=== PATIENT | male | born 1955 | race Caucasian/White ===

== ENCOUNTER → 2016-11-25 | Outpatient (CLI) | payer BC, OTHER ==
[2016-11-25 13:44] LABS: ESTIMATED AVERAGE GLUCOSE 163 mg/dl; HA1C FLAG Normal (Normal)
[2016-11-25 14:00] LABS: RATIO 27.6 mcg/mg (0-30.0)
[2016-11-25 14:02] LABS: BLOOD UREA NITROGEN 14 mg/dl (7-18); BUN/CREATININE RATIO 12.6 (10-20); CALCIUM 9.5 mg/dl (8.5-10.1); CARBON DIOXIDE 26 mmol/L (21-32); CHLORIDE 108 mmol/L (98-107); GLUCOSE 129 mg/dl (70-99); POTASSIUM 4.3 mmol/L (3.5-5.1); SODIUM 143 mmol/L (136-145)
== END | disposition home or self-care (01) ==
LOC: C.LABMFLN 17:25
PROVIDERS: ATTEND Family Medicine
DX: E11.29 Type 2 diabetes mellitus with other diabetic kidney complication (principal); I10 Essential (primary) hypertension

== ENCOUNTER → 2016-12-19 | Outpatient (CLI) | payer BC ==
[2016-12-19 13:43] LABS: BLOOD UREA NITROGEN 15 mg/dl (7-18)
== END | disposition home or self-care (01) ==
LOC: C.LABMFLN 08:41
PROVIDERS: ATTEND Physician Assistant
DX: H90.5 Unspecified sensorineural hearing loss (principal)

== ENCOUNTER → 2016-12-30 | Outpatient (CLI) | payer BC ==
[~2016-12-30] MED LIST: GADAVIST IV PRN
--- NOTE | 2016-12-30 11:25 | DIAGNOSTIC IMAGING REPORT ---
MRI OF THE BRAIN COMBO INTERNAL AUDITORY CANAL PROTOCOL CLINICAL HISTORY: Hearing loss. Cerumen impaction. COMPARISON STUDY: No priors. TECHNIQUE: MRI of the brain was performed utilizing various T1 and T2-weighted sequences in the axial, sagittal, and coronal planes. Contrast-enhanced sequences were acquired following the administration of 9 cc of Gadavist. Additional high-resolution imaging was performed through the skull base both pre and post contrast to assess the internal auditory canals. FINDINGS: Brain parenchyma: There is mild subcortical and periventricular microangiopathic change. There is no hemorrhage or mass effect. There is no restricted diffusion to suggest acute ischemia. No enhancing mass lesion is identified on the postcontrast images. Barnett-white matter differentiation is preserved. No extra-axial fluid collection is seen. The cerebellar tonsils are normal in configuration. Ventricles, sulci, and cisterns: Normal in configuration. Internal auditory canals: There is no enhancing mass lesion identified in the cerebellopontine angle. No mass or abnormal enhancement is seen along the course of the interlobular canal bilaterally. The middle ear structures are normal as visualized. Pituitary and sella: Unremarkable. Intracranial vasculature: Normal flow voids are maintained at the skull base. Orbits: The bony orbits are grossly intact. Orbital contents are normal in appearance. Sinuses and mastoids: There is a large left mastoid effusion. Trace right mastoid effusion is observed. There is mucosal thickening and trace fluid in the left maxillary antrum. Mild mucosal thickening is also seen in the ethmoid and frontal sinuses. Calvarium: Unremarkable. Cervical cord: Partially visualized cervical spinal cord is normal in morphology and signal intensity. IMPRESSION: 1. No acute intracranial abnormality. 2. Unremarkable MRI assessment of the internal artery canals. 3. Large left mastoid effusion. Electronically signed by: Fly Beal M.D. 12/30/2016 11:23 AM Dictated Date/Time: 12/30/2016 11:14 AM
== END | disposition home or self-care (01) ==
LOC: C.MRI 09:44
PROVIDERS: ATTEND Physician Assistant
DX: H61.20 Impacted cerumen, unspecified ear (principal)

== ENCOUNTER 2018-12-18 07:01 | Inpatient (IN) ==
--- NOTE | 2018-12-10 10:47 | Anesthesiology Consultation ---
Date of Service December 10, 2018 Assessment & Plan (1) Encounter for pre-operative examination: - S/P Prostate biopsy: 11/05/18: MAC sedation at [facility] - Check BSG AM DOS Chart Review Chart Review: Acceptable Risk for Surgery and Patient NOT seen in Pre Admission Testing History Surgery Operation Date: 12/18/18 09:05 Proposed Procedures p Left Video Assisted Thoracoscopy with Lower Lobe Wedge Resection - Jordan Mora MD, FACS Height/Weight Height: 5 ft 10 in Weight: 83.461 kg Allergies Allergy/AdvReac Type Severity Reaction Status Date / Time No Known Drug Allergies Allergy Verified 12/08/18 17:58 garlic AdvReac Gastrointestinal Verified 12/08/18 17:58 Upset Medications Home Medications Medication Instructions Recorded Confirmed Last Taken cholecalciferol (vitamin D3) 1,000 unit PO QAM 10/21/18 12/08/18 11/02/18 [Vitamin D3] glimepiride 4 mg PO BID 10/21/18 12/08/18 11/04/18 20:00 loratadine 10 mg PO QAM 10/21/18 12/08/18 Unknown metformin 1,000 mg PO BID 10/21/18 12/08/18 11/04/18 08:00 metoprolol succinate 25 mg PO QAM 10/21/18 12/08/18 11/05/18 08:00 atorvastatin 10 mg PO QAM 12/08/18 12/08/18 Unknown Past Medical History Medical History Diabetes mellitus, type 2 NIDDM HTN (hypertension) 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 Hyperlipidemia Osteoarthritis Prostate cancer UROLOGY MONITORING- POSSIBLE PROSTATECTOMY IN FUTURE PENDING LUNG WORKUP Pulmonary nodule Past Family History Family History Son Family history of diabetes mellitus Brother FHx: prostate cancer Past Surgical History Surgical History History of arthroscopy RIGHT KNEE History of colonoscopy HISTORY OF POLYPS Social History Smoking Status: Never smoker Do You Dip or Chew Tobacco: No Hx Alcohol Use: No Hx Substance Use: No substance use type: does not use Testing Laboratory Results 10/27/18 WBC 8.75 H/H 14.5/42.8 PLATELETS 190 SODIUM 139 POTASSIUM 4.1 CHLORIDE 107 CO2 27 BUN 16 CREATININE 0.98 GLUCOSE 103 HGBA1C 7.5% UA negative Electrocardiogram Date: 10/27/18 Findings: + NSR @ (72) Other Testing Chest CT: 11/02/18: There are dependent atelectatic changes. There is a solid 16 mm irregular marginated left lower lobe pulmonary nodule abutting the fissure. This should be presumed neoplastic until proven otherwise. Also evident is a 5 mm solid right middle lobe pulmonary nodule abutting the fissure. There are scattered right lung low suspicion perifissural nodules. There are coronary artery calcifications. Mild hepatic steatosis. There are small posterior gastric diverticulum.
[~2018-12-18 07:01] MED LIST changes: -GADAVIST IV PRN; +LR 15ML/HR IV SCH
[2018-12-18] MEDS ORDERED: fentaNYL citrate 100 MCG/2 ML VIAL ONE (09:23)
[2018-12-18] MEDS ORDERED: MIDAZOLAM HCL 1 MG/ML 2ML VIAL ONE (09:23)
[2018-12-18] MEDS ORDERED: BUPIVACAINE 0.5 % 5 MG/1 ML MPF 30ML VIAL ONE (09:41)
[2018-12-18] MEDS ORDERED: SODIUM CHLORIDE 0.9% PF 50 ML VIAL ONE (09:42)
[2018-12-18] MEDS ORDERED: BUPIVACAINE LIPOSOME 1.3% 266 MG/20 ML VIAL ONE (09:42)
[2018-12-18] MEDS ORDERED: CEFAZOLIN 2,000 MG/15 ML IV PUSH IV ONE (10:04)
--- NOTE | 2018-12-18 10:06 | History & Physical Bridge Note ---
Date of Service December 18, 2018 History & Physical Bridge Note I have examined the patient, reviewed the History & Physical and in the interval since the performance of the History & Physical I have noted the following changes of clinical significance: no changes noted
[2018-12-18] MEDS ORDERED: LIDOCAINE HCL 2% 2 ML VIAL/AMP(20MG/ML) INFIL ONE (10:56)
[2018-12-18] MEDS ORDERED: NEOSTIGMINE METHYLSULFATE 5 MG/5 ML SYR ONE (10:56)
[2018-12-18] MEDS ORDERED: PROPOFOL IV EMULSION 10 MG/ML 20 ML VIAL IV ONE (10:56)
[2018-12-18] MEDS ORDERED: ONDANSETRON INJ 2 MG/ML 2 ML VIAL ONE (10:56)
[2018-12-18] MEDS ORDERED: ROCURONIUM BROMIDE 10 MG/ML 5 ML VIAL ONE (10:56)
[2018-12-18] MEDS ORDERED: GLYCOPYRROLATE 0.2 MG/ML VIAL ONE (10:56)
--- NOTE | 2018-12-18 11:09 | Post Operative Brief Note ---
Immediate Post Op Note v1 Date of Surgery December 18, 2018 Pre & Post Diagnosis Operation Date: 12/18/18 08:45 Pre-Op Diagnosis: Left Lung Nodule Post-Op Diagnosis: Left Lung Nodule Procedure Operation Date: 12/18/18 08:45 Actual Procedures p Left Video Assisted Thoracoscopy with Lower Lobe Wedge Resection(Left) - Jordan Mora MD, FACS Surgeon Jordan Mora MD, FACS Clerical Administrative Assistant Odilon ROBIN Estimated Blood Loss 5 Findings Consistent with Post-Op Diagnosis Drains Chest Tube
[2018-12-18] MEDS ORDERED: ePHEDrine sulfate 50 MG/ML SYR ONE (11:21)
[2018-12-18] MEDS ORDERED: PROMETHAZINE HCL 12.5 MG in SODIUM CHLORIDE 0.9% 50 ML IV PRN (11:27)
[2018-12-18] MEDS ORDERED: ePHEDrine sulfate 50 MG/ML AMP IV PRN (11:27)
[2018-12-18] MEDS ORDERED: FLUMAZENIL 0.1 MG/1 ML 10 ML VIAL IV PRN (11:27)
[2018-12-18] MEDS ORDERED: LABETALOL HCL IV 5 MG/ML 20ML IV PRN (11:27)
[2018-12-18] MEDS ORDERED: ONDANSETRON INJ 2 MG/ML 2 ML VIAL IV PRN ×2 (11:27→13:13)
[2018-12-18] MEDS ORDERED: ATROPINE SULFATE 0.1 MG/ML 10ML SYR IV PRN (11:27)
[2018-12-18] MEDS ORDERED: HYDROmorphone INJ 1 MG/ML SYRINGE IV PRN (11:27)
[2018-12-18] MEDS ORDERED: NALOXONE HCL 0.4 MG/1 ML VIAL/CARP IV PRN (11:27)
[2018-12-18] MEDS ORDERED: HYDROmorphone INJ 1 MG/ML SYRINGE ONE (12:11)
[2018-12-18] MEDS ORDERED: METOCLOPRAMIDE HCL INJ 5 MG/ML 2 ML VIAL ONE (12:34)
[2018-12-18] MEDS ORDERED: METOCLOPRAMIDE HCL INJ 5 MG/ML 2 ML VIAL IV STA (12:40)
--- NOTE | 2018-12-18 13:06 | Anesthesiology Progress Note ---
Date of Service December 18, 2018 Anesthesia Post Procedure Vital Signs Vital Signs: Temp Pulse Pulse Resp BP BP Pulse Ox 12/18/18 13:00 51 L 12 135/75 12/18/18 12:50 36.5 C 54 L 13 124/74 12/18/18 12:40 55 L 18 126/76 12/18/18 12:30 57 L 11 L 124/78 12/18/18 12:20 36.5 C 56 L 19 128/78 12/18/18 12:10 55 L 18 133/80 12/18/18 12:00 65 13 130/83 12/18/18 11:50 70 22 135/82 12/18/18 11:40 62 13 127/80 12/18/18 11:30 36.6 C 76 23 140/86 12/18/18 07:43 36.3 C L 78 18 172/88 H 94 Pain Intensity Left Lateral Chest: Pain Intensity: 3 Transfer of Care Handoff Completed per policy Notes Mental Status: alert / awake / arousable Patient Amnestic to Procedure: Yes Nausea / Vomiting: adequately controlled Pain: adequately controlled Airway Patency, RR, SpO2: stable & adequate BP & HR: stable & adequate Hydration State: stable & adequate Anesthetic Complications: no major complications apparent
[2018-12-18] MEDS ORDERED: OXYCODONE/ACETAMINOPHEN 5mg/325mg TAB PO PRN (13:13)
[2018-12-18] MEDS ORDERED: MoRPHine SULFATE 2 MG/ML CARP IV PRN (13:13)
[2018-12-18] MEDS: METOCLOPRAMIDE HCL INJ 5 MG/ML 2 ML VIAL IV SCH ×2 (14:28→21:56)
[2018-12-18] MEDS: KETOROLAC TROMETHAMINE 15 MG/ML VIAL IV SCH ×2 (14:28→21:57)
[2018-12-18] MEDS ORDERED: LIDOCAINE 2% JELLY 5 ML TUBE EXT ONE (15:58)
[2018-12-18] MEDS ORDERED: TAMSULOSIN HCL 0.4 MG CAP PO ONE (17:24)
[2018-12-18] MEDS: GLIMEPIRIDE 2 MG TAB PO SCH (17:57)
[2018-12-18] MEDS: METFORMIN HCL 500 MG TAB PO SCH (17:57)
--- NOTE | 2018-12-18 21:04 | Urology Consultation ---
Date of Consultation December 18, 2018 Assessment & Plan (1) Acute urinary retention: (2) Prostate cancer: History of Present Illness Attending Physician: Jordan Mora MD, FACS History of Present Illness Patient POD0 after wedge resection for lung mass. Follows with Dr. 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 Plan was to have results of lung prior to definitive plan for prostate cancer. Has significant LUTS over last 4 months. Just prior to chest surgery going every 1-2 hours and 2-5 x per night. No medications. Post op had mild leaking through day. No good voids. Scanned around 6pm for approx 400. Attempted straight cath had small amount of urine and small clots. Was then voiding small amounts and incontinent. Flomax trialed and patient had small voids. Never fully able to empty. Repeat scan now 550. patient having worsening distension in last 20-60 mins. No severe pain. Pressure. Increased leaking. Discomfort in groin. No severe issue. 18 Fr Coude was placed by myself and approx 600cc of urine immediately drained. Burning after catheter but improved pressure and discomfort. Allergies Allergy/AdvReac Type Severity Reaction Status Date / Time No Known Drug Allergies Allergy Verified 12/08/18 17:58 garlic AdvReac Gastrointestinal Verified 12/08/18 17:58 Upset Home Medications Home Medications Medication Instructions Recorded Confirmed Type cholecalciferol (vitamin D3) 1,000 unit PO QAM 10/21/18 12/18/18 History [Vitamin D3] glimepiride 4 mg PO BID 10/21/18 12/18/18 History loratadine 10 mg PO QAM 10/21/18 12/18/18 History metformin 1,000 mg PO BID 10/21/18 12/18/18 History atorvastatin 10 mg tablet 10 mg PO QAM #90 tab 12/14/18 12/18/18 Rx metoprolol succinate ER 25 mg 25 mg PO DAILY #90 ea 12/14/18 12/18/18 Rx capsule sprinkle, ext. 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 Hyperlipidemia Osteoarthritis Prostate cancer UROLOGY MONITORING- POSSIBLE PROSTATECTOMY IN FUTURE PENDING LUNG WORKUP Pulmonary nodule Surgical History History of arthroscopy RIGHT KNEE History of colonoscopy HISTORY OF POLYPS Family History Son Family history of diabetes mellitus Brother FHx: prostate cancer Social History Preferred Language: Other Communication Ability: Effective Cat Scan Technologist Required: No Beliefs That Will Affect Care: None Current Living Situation: Spouse and Family Other Information That Helps Us Care for You: No Feels Safe at Home: Yes Safety Concerns: Feels Safe At This Time Smoking Status: Never smoker Do You Dip or Chew Tobacco: No Second Hand Exposure: No Tobacco Cessation Education Requested by Patient: No Hx Alcohol Use: No Hx Substance Use: No Review of Systems Review of Systems: All systems reviewed & are unremarkable except as noted in HPI & below Physical Exam Constitutional: not obese ENMT: Mouth: no dentition abnormality Mallampati Class: II Neck: normal visual inspection and trachea midline; neck extension not limited Respiratory: normal respiratory effort Auscultation: lungs clear to auscultation bilaterally Chest tube in place and attached Cardiovascular: Rate/Rhythm: regular rate and regular rhythm Heart Sounds: no murmur Vessels: no carotid bruit Gastrointestinal (Abdomen): Inspection/Auscultation: abdomen normal to inspection and + abdomen distended; no abdominal edema Percussion/Palpation: + abdomen tender SP Tenderness improved after catheter placement. Distension improved as well. Musculoskeletal: Spine: normal cervical ROM Skin: no rashes, warm and dry Neurologic: moves all extremities Motor/Sensory: no sensory deficit Psychiatric: Orientation: alert and oriented x 3 Genitourinary: no CVA tenderness, no scrotum abnormality, no phimosis and no meatus abnormal Lymphatic: no lymphadenopathy Results & Data Vital Signs (Past 12 Hours) Vital Signs Temp Pulse Pulse Resp BP Pulse Ox 12/18/18 19:36 36.8 C 67 18 163/84 H 98 12/18/18 17:21 36.8 C 60 16 138/75 97 12/18/18 16:14 36.6 C 61 18 114/60 95 12/18/18 15:22 36.6 C 78 18 108/62 100 12/18/18 14:03 36.7 C 60 20 132/86 12/18/18 13:40 36.7 C 59 L 20 133/77 12/18/18 13:10 36.7 C 59 L 16 130/75 12/18/18 13:00 51 L 12 135/75 12/18/18 12:50 36.5 C 54 L 13 124/74 12/18/18 12:40 55 L 18 126/76 12/18/18 12:30 57 L 11 L 124/78 12/18/18 12:20 36.5 C 56 L 19 128/78 12/18/18 12:10 55 L 18 133/80 12/18/18 12:00 65 13 130/83 12/18/18 11:50 70 22 135/82 12/18/18 11:40 62 13 127/80 12/18/18 11:30 36.6 C 76 23 140/86 100
[2018-12-18] MEDS: DOCUSATE SODIUM 100 MG CAP PO SCH (21:56)
--- NOTE | 2018-12-18 22:03 | Operative Report ---
DATE OF OPERATION: 12/18/2018 DATE OF PROCEDURE: 12/18/2018 PREOPERATIVE DIAGNOSES: 1. Left lower lobe mass. 2. Prostate carcinoma. POSTOPERATIVE DIAGNOSES: 1. Apparent metastatic prostate carcinoma to left lower lobe. 2. Prostate carcinoma. PROCEDURE: Thoracoscopic wedge resection of the left lower lobe mass. SURGEON: Jordan Mora MD CLERICAL SECRETARY: Salas Vail PA-C. ANESTHESIA: General anesthesia with endotracheal intubation using a single lumen tube. INDICATIONS OF PROCEDURE AND FINDINGS: This is a 63-year-old man who was found to have a prostate carcinoma and it appeared that he would be a candidate for a prostatectomy and Dr. Ed Eng was setting him up for this when he was found to have a mass in the superior segment of his left lower lobe. This was hypermetabolic. We saw no other evidence of metastatic disease. Dr. Eng felt that sampling this first to ensure they did not have metastatic prostate carcinoma would be beneficial as he was going to offer him a prostatectomy. Should this prove to be metastatic, he would not offer him a prostatectomy. On 12/18/2018, the patient was brought to the operating room and underwent uncomplicated thoracoscopic left lower lobe wedge resection. Frozen section shows an adenocarcinoma consistent with prostate, although immunohistochemical stains are still pending. The patient tolerated it well. PROCEDURE: The patient was brought to the operating room and laid in supine position. General anesthesia induced. Endotracheal intubation was performed with a single lumen tube. We did not insert a Alcaraz catheter. The patient was turned into the right lateral decubitus position. His left chest prepped and draped in usual sterile fashion. After appropriate timeout had been called, I made 3 separate incisions. A 5 mm incision was made anterior to latissimus dorsi muscle to the level of the scapula and another 5 mm incision was made posterior to the scapula above the scapular tip. Upon going in, we see there were no adhesions. We then, under thoracoscopic guidance, made a 12 mm incision just above the diaphragm bit anteriorly. Going in, we could immediately see this mass. I had to separate the lower lobe from the upper lobe along the superior segment and got enough of this, so that we could fire a stapler under this mass. We completely wedge this out and placed this in an Endobag and removed it. This was sent to frozen section. While waiting for the frozen section, we mixed 266 mg of Exparel with 250 mL of normal saline, and 30 mL of 0.5% bupivacaine. We then performed an intercostal block. It should be noted that we mixed Exparel at beginning of the case and injected into all 3 of our port sites. The frozen section came back as an adenocarcinoma consistent with a prostate, although we are still pending final stains. We elected to close at this point. A 24-Vietnamese chest tube was placed through the 12 mm port and sutured in place with heavy silk suture. A 4-0 Monocryl was used to close all of the incisions. We did not have an air leak at the conclusion of the case. He tolerated it well. I attest to the content of the Intraoperative Record and any orders documented therein. Any exception s are noted below.
[2018-12-18] MEDS: D5W AND 1/2NSS 1,000 ML IV SCH ×2 (22:21→23:45)
[2018-12-19] MEDS: METOCLOPRAMIDE HCL INJ 5 MG/ML 2 ML VIAL IV SCH (05:06)
[2018-12-19] MEDS: KETOROLAC TROMETHAMINE 15 MG/ML VIAL IV SCH (05:06)
--- NOTE | 2018-12-19 07:12 | XRay Report ---
XR chest 1V not portable CLINICAL HISTORY: 63 years-old Male presenting with s/p VATS. TECHNIQUE: Portable upright AP view of the chest was obtained. COMPARISON: 10/27/2018. FINDINGS: Large bore left pleural drain now in place terminating at the paramediastinal left midlung. Cardiomed iastinal silhouette normal. Fluid is suggested within the left major fissure. No pneumothorax. Minima l left basilar opacity. Right lung and pleural space clear. Degenerative changes of the thoracic spin e. Upper abdomen normal. IMPRESSION: 1. Left pleural drain in place. No pneumothorax. 2. Suspected fluid in the left major fissure and minimal left basilar atelectasis. Electronically signed by: Macario Rios M.D. 12/19/2018 7:10 AM
--- NOTE | 2018-12-19 08:34 | XRay Report ---
XR chest 1V portable CLINICAL HISTORY: 63 years-old Male presenting with chest tube removal. TECHNIQUE: Portable upright AP view of the chest was obtained. COMPARISON: 12/19/2018 at 6:46 AM. FINDINGS: Interval removal of the left pleural drain. Cardiomediastinal silhouette normal. Suture margin noted in the left mid lung. Trace left apical pneumothorax. No large effusion. Degenerative changes of the thoracic spine. Upper abdomen normal. IMPRESSION: 1. Trace left apical pneumothorax status post removal of the left pleural drain. 2. Postsurgical changes of the left midlung. Electronically signed by: Macario Rios M.D. 12/19/2018 8:32 AM
[2018-12-19] MEDS ORDERED: ATORVASTATIN 10 MG TAB PO SCH (09:00)
[2018-12-19] MEDS ORDERED: METOPROLOL SUCC 25MG EXT REL TAB PO SCH (09:00)
[2018-12-19] MEDS ORDERED: LORATADINE 10 MG TAB PO SCH (09:00)
[2018-12-19] MEDS: METFORMIN HCL 500 MG TAB PO SCH (09:17)
[2018-12-19] MEDS: DOCUSATE SODIUM 100 MG CAP PO SCH (09:17)
[2018-12-19] MEDS: GLIMEPIRIDE 2 MG TAB PO SCH (09:17)
[2018-12-19] MEDS: D5W AND 1/2NSS 1,000 ML IV SCH (11:04)
--- NOTE | 2018-12-19 11:36 | Anesthesiology Progress Note ---
Date of Service December 19, 2018 Anesthesia Post Procedure Vital Signs Vital Signs: Temp Pulse Pulse Resp BP Pulse Ox 12/19/18 10:40 36.7 C 82 15 146/68 H 95 12/19/18 09:10 36.7 C 82 15 146/68 H 95 12/19/18 07:23 36.6 C 75 17 138/75 94 12/19/18 05:10 37.4 C 85 16 140/71 96 12/19/18 01:10 37.3 C 78 16 122/65 94 12/18/18 23:10 37.3 C 94 H 16 121/63 96 12/18/18 21:18 36.7 C 70 18 161/85 H 98 12/18/18 19:36 36.8 C 67 18 163/84 H 98 12/18/18 17:21 36.8 C 60 16 138/75 97 12/18/18 16:14 36.6 C 61 18 114/60 95 12/18/18 15:22 36.6 C 78 18 108/62 100 12/18/18 14:03 36.7 C 60 20 132/86 100 12/18/18 13:40 36.7 C 59 L 20 133/77 100 12/18/18 13:10 36.7 C 59 L 16 130/75 100 12/18/18 13:00 51 L 12 135/75 100 12/18/18 12:50 36.5 C 54 L 13 124/74 100 12/18/18 12:40 55 L 18 126/76 12/18/18 12:30 57 L 11 L 124/78 100 12/18/18 12:20 36.5 C 56 L 19 128/78 100 12/18/18 12:10 55 L 18 133/80 100 12/18/18 12:00 65 13 130/83 100 12/18/18 11:50 70 22 135/82 100 12/18/18 11:40 62 13 127/80 100 Pain Intensity Left Lateral Chest: Pain Intensity: 2 Notes Mental Status: alert / awake / arousable and participated in evaluation Patient Amnestic to Procedure: Yes Nausea / Vomiting: adequately controlled Pain: adequately controlled Airway Patency, RR, SpO2: stable & adequate BP & HR: stable & adequate Hydration State: stable & adequate Anesthetic Complications: no major complications apparent and Pt Satisfied with anesthetic care
[2018-12-19] MEDS ORDERED: TAMSULOSIN HCL 0.4 MG CAP PO SCH (21:00)
--- NOTE | 2018-12-19 22:03 | Discharge Summary ---
DISCHARGE DIAGNOSES: 1. Metastatic prostate carcinoma in the left lower lobe. 2. Urinary retention. HOSPITAL COURSE: This is a 63-year-old male who was found to have prostate carcinoma in the course of his workup by Dr. Ed Eng. He underwent a CT scan and was found to have a hypermetabolic mass in the superior segment of left lower lobe. The patient is markedly symptomatic from his prostate carcinoma and Dr. Ed Eng was considering a robotic prostatectomy. However, he felt that this mass in the left lower lobe should be sampled first to determine whether or not he would be a candidate for prostatectomy. On 12/18/2018, the patient was brought to the operating room and underwent uncomplicated left thoracoscopy with wedge resection of this mass. Frozen section showed this to be an adenocarcinoma and it appears that it may well be a prostate; however, we are going to have to wait immunohistochemical stains. The patient did very well with no air leak, minimal blood loss. He had really very little in the way of pain. The only problem with the patient postop is he developed urinary retention which was not surprising. Dr. Jordan Damian placed an 18-Japanese Coude and 600 mL of urine drained. He has clear urine this morning. He really is tolerating the catheter well. On the morning after surgery, I removed his chest tube. His chest x-ray looked quite good. Incisions are clean. I discussed this with the patient's son. We will discuss this with Dr. Damian this morning, but it appears to me that he will be a candidate for going home today with a Alcaraz catheter in place. I will see the patient back in the week of the to go over his final pathology results.
--- NOTE | 2019-01-03 13:12 | Operative Report ---
DATE OF OPERATION: 12/18/2018 ADDENDUM SURGEON: Jordan Mora MD INTERVENTIONAL RADIOLOGIST: Salas Vail PA-C PROCEDURE: Left thoracoscopy with wedge resection. DESCRIPTION OF PROCEDURE: The patient underwent an uncomplicated left thoracoscopy with a wedge resection. Mr. Vail was present for the entire case and was instrumental in holding the camera while I performed the surgery. He also closed the skin incisions at the conclusion. I attest to the content of the Intraoperative Record and any orders documented therein. Any exception s are noted below.
== END 2018-12-19 11:58 | disposition home or self-care (01) | DRG 168 ==
LOC: ASU 07:01 → 3N 12:27